=== PATIENT | male | born 1970 | race Hispanic/Latino ===

== ENCOUNTER 2016-10-14 13:51 | Emergency (ER) | payer OTHER ==
[~2016-10-14] VITALS: Ht 167.6 cm; Wt 81.8 kg
[2016-10-14 13:55] VITALS: BP 145/94; PULSE 82; RESP 15; O2SAT 97
--- NOTE | 2016-10-14 15:59 | ED.REPORT ---
HPI-Head Prob / Injury Date of Service Oct 14, 2016 ED Provider: Patel Clement MD Patient is a 46 year old male who presents to the ED complaining of left parietal head pain onset 9 days ago. Associated symptoms include pain that radiates down the left side of his neck and dizziness. He denies losing consciousness. The patient reports that he was walking on stilts and hit his head on a wooden ceiling beam but continued to work the rest of the day. He states that he felt dizzy and "dazed" at first and the pain has not gone away. The patient also complains of a right index finger laceration that happened last week. Nursing Notes Stated Complaint: FALL AT WORK/ HEAD INJURY Chief Complaint: Head, Face, Neck Trauma Nursing Notes Reviewed: Yes Allergies: Coded Allergies: No Known Allergies (Verified Allergy, Unknown, 02/18/16) No Active Prescriptions or Reported Meds General Time Seen by Provider: 15:59 Chief Complaint Blunt head trauma Hx Obtained From: Patient Arrived By: Walk-in Onset Occurred: More than a week ago... Symptom Duration: Since onset Caused by: Blunt trauma Context: Occurred at: Workplace Location: : Temporal region L Quality: Painful Radiation: Radiation present (into left side of neck) Severity: Current: Moderate Similar Sx Previous: No Past Medical History Past Medical History Cataracts in both eyes Cough with musculoskeletal pain of the ribs Past Surgical History None Family History No family history of bleeding disorders or coagulopathies Mother with hypertension high cholesterol Smoking History Never Smoker Social History Alcohol Use: Denies alcohol use Drug Use: Denies drug use Other Social History: Good social support Ambulatory Status Independent Review of Systems Review of Systems Note: +finger laceration Constitutional: Denies: Chills, Fever GI: Denies: Vomiting Musculoskeletal: Reports: Neck pain Skin: Denies Itching, Denies Rash Neurologic: Reports: Dizziness, Headache, Denies: Change LOC, Numbness, Problem walking, Weakness Complete sys rev & neg: except as marked. Respiratory: Denies: Non-productive cough, Shortness of breath Physical Exam Initial Vital Signs Vital Signs (First) Date Time Temp Pulse Resp B/P Pulse Ox O2 Delivery O2 Flow Rate FiO2 10/14/16 13:55 36.6 82 15 145/94 97 Room Air Initial VS: Reviewed General/Constitutional: Awake, Alert Head / Eyes: Normocephalic, PERRL, EOMI swelling of the left parietal area ENT: Atraumatic, Airway patent, Mucous membranes moist Neck: Atraumatic, Supple left paraspinal muscle pain with movement Neurologic: Oriented X3, Speech NL, No motor deficits, No sensory deficits, Memory NL Respiratory / Chest: Atraumatic, Breath sounds NL, Breath sounds = bilat, No respiratory distress Cardiovascular: Heart rate NL, Regular rhythm, Heart sounds NL Skin: Atraumatic, Color NL, No rash, Warm, Dry Psychiatric: Affect NL, Mood NL Wrist / Hand: No deformity, Neurologic intact, Vascular intact 1cm curvilinear laceration to the right index finger at the radial aspect of the PIP joint that is mostly closed now Re-Eval/Medical Decision Re-Evaluation/Progress : Time of Eval: 16:05 Re-Evaluation/Progress Note: Discussed plan for discharge. Patient understands and agrees to plan. All questions were addressed. Counseled Regarding: Diagnosis, Need for follow-up, When/why to return to ED Discharge & Departure Primary Impression: Contusion of head Additional Impressions: Hematoma of scalp Trapezius strain Laceration of right index finger Disposition: Home All VS Reviewed: Yes Condition: Stable Patient Instructions: Contusion in Adults (ED), Finger Laceration (ED) Additional Instructions: I believe that the symptoms of numbness and tingling are related to the bruise under your scalp. Also I think you have strained the muscle in the left side of your neck. Both of these things should resolve over the next week or 2. If you take ibuprofen, 600 mg every 8 hours, regularly this should speed your healing. Regarding the wound on your finger, this should get better over the next 3 or 4 weeks. If you have any significant disability in the finger after that, follow up with the orthopedic doctor listed below. Also, follow up right away if there seems to be any infection developing. [employer] Creo que los sntomas de entumecimiento y hormigueo estn relacionados con el moretn bajo mares cuero cabelludo. Tambin creo que decker tensado el msculo en el lado shay de mares cristofer. Ambas cosas deben resolverse elba la prxima semana o 2. Si usted abe ibuprofeno, 600 mg cada 8 horas, regularmente esto debera acelerar mares curacin. En cuanto a la herida en mares dedo, esto debera mejorar en las prximas 3 o 4 semanas. Si tiene alguna discapacidad significativa en el dedo despus de eso, realice el seguimiento con el mdico ortopdico que se menciona a continuacin. Adems, siga de inmediato si parece gerson alguna infeccin en desarrollo. Referrals: [facility] (PCP) Scribe Attestation Portions of this note were transcribed by Kenzie Wagner. I, Dr. Clement personally performed the history, physical exam and medical decision-making; I reviewed and confirmed the accuracy of the information in the transcribed note. Signed by: Corey Barba, 10/14/16 copies to: [facility] Patel Clement MD Oct 14, 2016 15:59 Theresa Wagner Oct 14, 2016 16:06
[2016-10-14 16:47] VITALS: BP 128/67; PULSE 53; RESP 16; O2SAT 97
== END 2016-10-14 16:42 | disposition home or self-care (01) ==
LOC: SED 13:51
DX: S00.03XA Contusion of scalp, initial encounter (principal); S46.812A Strain of other muscles, fascia and tendons at shoulder and upper arm level, left arm, initial encounter; S61.211A Laceration without foreign body of left index finger without damage to nail, initial encounter; W22.8XXA Striking against or struck by other objects, initial encounter; Y93.89 Activity, other specified; Y92.69 Other specified industrial and construction area as the place of occurrence of the external cause; Y99.0 Civilian activity done for income or pay